=== PATIENT | male | born 1990 | race Caucasian/White ===

== ENCOUNTER 2018-11-18 13:42 | Emergency (ER) | payer MEDICARE, MEDICAID, SELFPAY ==
[2018-11-18] VITALS (44 sets, daily range): BP systolic 134–169; BP diastolic 58–108; PULSE 72–134; RESP 4–29; TEMP 36.2–36.9; O2SAT 91–100
--- NOTE | 2018-11-18 14:46 | ED.GENADUL_ITS ---
Discharge Plan Disposition Patient Disposition: HOME Condition: Good Discharge Details Chief Complaint: Nausea/Vomit/Diar Clinical Impression: Elevated liver enzymes, Fever, Vomiting, Dehydration, Acute hypokalemia Primary Care Provider: Gabe Waddell ED Provider: Geronimo Michelle Home Meds and New Rx's Prescriptions: New ondansetron 4 mg tablet,disintegrating 4 mg PO TID PRN (Reason: nausea and vomiting) 3 Days Qty: 9 RF: 0 No Action albuterol sulfate [ProAir HFA] 90 mcg/actuation HFA aerosol inhaler 2 puff IH Q4H PRNRF: 0 Space Chamber Plus 1 EACH spacer 1 ea Miscellaneous PRN Qty: 1 RF: 0 duloxetine 60 mg capsule,delayed release(DR/EC) 60 mg PO DAILY Qty: 90 RF: 4 Discharge Instructions Instructions: Dehydration (ED), Fever in Adults (ED), Liver Profile (GEN) Additional Instructions: We did not find a known source for your fever and vomiting. This may be from a viral gastroenteritis, however it is important that you follow-up with your primary care provider for reevaluation next week. We have sent off additional tests that will require 3 to 4 days to return and it is important follow-up with your primary care provider for these results as well. Among these are a Lyme test as well as studies to evaluate your elevated liver enzymes. Discharge Data Discharge Date/Time-TO BE ENTERED AT DEPARTURE: 11/18/18 18:40 Discharge Physician: Geronimo Michelle Medical Decision Making Patient presenting with febrile illness, symptoms of nausea, vomiting, few episodes of loose stools. Vitals significant for tachycardia which did resolve with IV fluids. Labs reveal hypokalemia, mildly elevated LFTs. Chest x-ray unremarkable. Suspect viral syndrome, I have sent blood cultures as well as hepatitis serology and Lyme and tick bite serologies. After 2 L of IV fluids patient feeling much better and requesting discharge to home. I reiterated the importance of follow-up with PCP for ongoing evaluation and need to return to ED for any worsening symptoms. Patient Name: CY DAVID #: [id number]: ER Ordering Provider: : REG ER Primary Care Provider: Gabe Waddell Date of Exam: 11/18/18Sex: M : 1990Age: 28 Exam(s) EXAM: XR Chest, 2 Views EXAM DATE/TIME: 11/18/2018 3:28 PM CLINICAL HISTORY: 28 years old, male; Signs and symptoms; Cough and fever TECHNIQUE: Imaging protocol: XR of the chest, 2 views. COMPARISON: CR LEFT CLAVICLE 04/06/2012 11:18 AM FINDINGS: Prior plate and screw fixation of a left clavicular fracture. The lung alamo are clear bilaterally. No focal pulmonary consolidation is present. The cardiac silhouette is within normal limits. The costophrenic angles are sharp. The bony structures otherwise appear unremarkable. IMPRESSION: No evidence of acute cardiopulmonary disease. Dictated and Authenticated by: Joel Ocampo MD. Ordering:KRISTEN Melton MD LANETTE Yanez presents with 3-day history of nausea, vomiting, few episodes of loose stools, fever, body aches. History significant for asthma, has had some cough and small amount of wheezing today. No productive sputum. General Date/Time Provider Initiated Documentation: 11/18/18 14:01 . Related Data Home Medications Medication Instructions Recorded Confirmed inhalational spacing device [Space #1 03/18/14 11/18/18 Chamber Plus] albuterol sulfate HFA 90 2 puff IH Q4H PRN gm 02/18/18 11/18/18 mcg/actuation aerosol inhaler duloxetine 60 mg capsule,delayed 60 mg PO DAILY #90 cap 10/24/18 11/18/18 release ondansetron 4 mg PO TID PRN 3 Days #9 tab 11/18/18 Previous Rx's Medication Instructions Recorded duloxetine 60 mg capsule,delayed 60 mg PO DAILY #90 cap 10/24/18 release ondansetron 4 mg PO TID PRN 3 Days #9 tab 11/18/18 Allergies Allergy/AdvReac Type Severity Reaction Status Date / Time No Known Allergies Allergy Unverified 11/18/18 14:07 General Stated Complaint: Nausea/Vomit/Diar CAMERON: 3 Review of Systems Constitutional Reports chills, Reports fatigue and Reports fever(s) Eyes Denies loss of vision ENT Denies nasal congestion and Denies sore throat Cardiovascular Denies chest pain and Denies dyspnea Respiratory Reports cough, Denies dyspnea and Reports wheezing Gastrointestinal Denies abdominal pain, Denies nausea and Denies vomiting Musculoskeletal Denies back pain, Denies muscle weakness and Denies numbness Integumentary/Breasts Denies rash Neurologic Denies focal weakness, Denies loss of vision and Denies numbness Endocrine Reports fatigue Hematologic/Lymphatic Denies easy bruising Allergic/Immunologic Reports wheezing PFSH Surgical History CLAVICULE FX (11/05/11) Family History Mother No problems noted. Father No problems noted. Sister No problems noted. Brother No problems noted. Social History Smoking/Tobacco Use Status: Current every day Alcohol Intake: current Alcohol Intake frequency: a few times a month Drug use: Daily Substance use type: marijuana Do you feel safe at home: Yes Do you feel safe in your relationship?: Yes Exam Const General: cooperative, no acute distress and well developed Orientation: alert, awake and oriented x3 HENMT Head: normal to inspection Ears: hearing grossly normal bilaterally Eyes EOM: EOM intact bilaterally Neck Neck: normal visual inspection Resp Effort & Inspection: normal respiratory effort Auscultation: rhonchi and wheezes Cardio Rate: regular rate Rhythm: regular rhythm Heart Sounds: no murmurs GI Palpation: soft and nontender Skin General skin exam: no rashes or lesions noted Neuro General: alert, awake and oriented x3 Speech: speech normal Gait: normal gait Extrem General: normal to inspection Course Vital Signs Temperature 36.2 C L 11/18/18 13:45 Pulse 134 H 11/18/18 13:45 Respiratory Rate 16 11/18/18 13:45 Blood Pressure 164/103 H 11/18/18 13:45 Pulse Oximetry 94 L 11/18/18 13:45 Temperature 36.2 C L 11/18/18 13:45 Temperature Source Temporal Artery Scan 11/18/18 13:45 Pulse 113 H 11/18/18 14:09 Respiratory Rate 11 L 11/18/18 14:09 Respiratory Effort Non-Labored 11/18/18 14:00 Blood Pressure 152/93 H 11/18/18 14:09 Blood Pressure Position Sitting 11/18/18 13:45 Pulse Oximetry 94 L 11/18/18 14:09 Oxygen Delivery Method Room Air 11/18/18 14:09 Oxygen Flow Rate 0 11/18/18 14:09 Pain Level 6 11/18/18 13:45
--- NOTE | 2018-11-18 14:52 | DI.RAD_ITS ---
SYMPTOM/DIAGNOSIS: COUGH, FEVER, LETHARGY PA AND LATERAL CHEST: Comparison is made with 08/18/10. Heart size and pulmonary vasculature are within normal limits. The lungs are clear. No effusions are seen. No pneumothorax is present. There is a side plate and screws transfixing an old healed left clavicular fracture. No acute osseous abnormality is identified. IMPRESSION: No acute pulmonary process.
[2018-11-18] MEDS: Ondansetron 4 MG/2 ML VIAL IVP (15:10)
[2018-11-18 15:11] LABS: Abs Immature Grans 0.01 k/cumm (0.0-0.09); Absolute Basophil Count 0.02 k/cumm (0.0-0.2); Absolute Eosinophil Count 0.17 k/cumm (0.0-0.7); Absolute Lymphocyte Count 1.88 k/cumm (1.2-3.4); Absolute Monocyte Count 1.08 k/cumm (0.11-0.7); Absolute Neutrophil Count 6.33 k/cumm (1.2-6.7); Basophils % 0.2; Eosinophils % 1.8; HCT 44.6 % (40.0-50.0); HGB 15.4 g/dL (13.5-17.5); Immature Grans % 0.1; Lymphocytes % 19.8; Mean Corp. HGB Concentration 34.5 g/dL (32.0-36.0); Mean Corpuscular Hemoglobin 30.6 pg (27.0-33.0); Mean Corpuscular Volume 88.5 fL (80-95); Mean Platelet Volume 10.4 fL (8.0-11.0); Monocytes % 11.4; Neutrophils % 66.7; Platelet Count 278 x1000/uL (130-400); RBC 5.04 m/cumm (4.50-6.00); White Blood Cell Count 9.49 k/cumm (4.4-10.8)
[2018-11-18] MEDS: Normal Saline 1,000 ML 1000 ML IV ×2 (15:11→17:01)
[2018-11-18 15:12] LABS: BE (Venous) -0.4 mmol/L (-3-3); HCO3 (Venous) 24 mmol/L (22-28); O2 Sat (Venous) 92 % (70-80); TCO2 (Venous) 21 mmol/L (22-29); pCO2 (Venous) 39 mm/Hg (34-47); pO2 (Venous) 60 mm/Hg (28-44)
[2018-11-18 15:19] LABS: Bilirubin Moderate (Negative); Blood Trace-intact (Negative); Clarity Clear; Glucose Negative (Negative); Ketones 80 mg/dL (Negative); Leukocyte Esterase Negative (Negative); Nitrite Negative (Negative); Specific Gravity 1.025 (1.005-1.025)
[2018-11-18] MEDS: Albuterol/Ipratropium 3 ML UPD VIAL UPD (15:31)
[2018-11-18 15:33] LABS: Bacteria Few HPF (Negative); C & S Indicated? No; Casts Negative LPF (Negative); Crystals Negative HPF (Negative); Epithelial Cells Negative HPF (Negative); Mucus Heavy (Negative); Other Cells Negative (Negative); RBC 0-2 (0-2)
[2018-11-18 15:33] LABS: ALT 104 U/L (12-78); AST 53 U/L (15-37); Albumin 3.9 g/dL (3.4-5.0); Alkaline Phosphatase 58 U/L (46-116); Anion Gap 11.4 mmol/L (3-11); BUN 17 mg/dL (7-18); Bilirubin, Total 0.6 mg/dL (0.2-1.0); CO2 24.6 mmol/L (21.0-32.0); CREATININE 0.91 mg/dL (0.70-1.30); Calcium 9.3 mg/dL (8.5-10.1); Chloride 98 mmol/L (98-107); Glucose 117 mg/dL (70-100); Potassium 3.1 mmol/L (3.5-5.1); Sodium 134 mmol/L (136-145); Total Protein 8.7 g/dL (6.4-8.2)
[2018-11-18 15:50] LABS: Procalcitonin < 0.1 ng/mL
--- NOTE | 2018-11-18 15:54 | DI.VRAD_ITS ---
EXAM: XR Chest, 2 Views EXAM DATE/TIME: 11/18/2018 3:28 PM CLINICAL HISTORY: 28 years old, male; Signs and symptoms; Cough and fever TECHNIQUE: Imaging protocol: XR of the chest, 2 views. COMPARISON: CR LEFT CLAVICLE 04/06/2012 11:18 AM FINDINGS: Prior plate and screw fixation of a left clavicular fracture. The lung alamo are clear bilaterally. No focal pulmonary consolidation is present. The cardiac silhouette is within normal limits. The costophrenic angles are sharp. The bony structures otherwise appear unremarkable. IMPRESSION: No evidence of acute cardiopulmonary disease. Dictated and Authenticated by: Joel Ocampo MD. Ordering:KRISTEN Melton MD
[2018-11-18] MEDS: Potassium Chloride 20 MEQ TABCR 40 MEQ PO (17:30)
[2018-11-18] MEDS: Ondansetron 4 MG TAB PO (18:26)
[2018-11-20 11:11] LABS: Lyme Ab w Rflx to Lyme Confirm Negative
[2018-11-20 12:03] LABS: Hepatitis A Antibody IgM Negative (NEGAT); Hepatitis B Core Antibody Negative (NEGAT); Hepatitis B surface Ag Negative (NEGAT); Hepatitis C Ab w Rflx HCV PCR Negative (NEGAT)
[2018-11-21 00:03] LABS: Anaplasma phagocytophilum Negative (Negative); B. miyamotoi PCR Negative (Negative); Babesia divergens/MO-1 Negative (Negative); Babesia duncani Negative (Negative); Babesia microti Negative (Negative); Ehrlichia chaffeensis Negative (Negative); Ehrlichia ewingii/canis Negative (Negative); Ehrlichia muris eauclairensis Negative (Negative)
== END 2018-11-18 18:40 | disposition home or self-care (01) ==
PROVIDERS: Emergency Provider Physician Assistant Medical; PCP Family Medicine
DX: R94.5 Abnormal results of liver function studies (principal); R50.9 Fever, unspecified; R11.10 Vomiting, unspecified; E86.0 Dehydration; E87.6 Hypokalemia; R00.0 Tachycardia, unspecified
CPT/HCPCS: 36415; 80053; 82805; 84145; 86704; 86709; 86803; 87040; 87340; 87449; 94640; 96361; 96374; 99284; 71046; 81003; 81015; 85025; 86618; 87798; J2405; J7620; J8597

== ENCOUNTER 2020-03-14 10:57 | Outpatient (CLI) | payer MEDICARE, MEDICAID, SELFPAY ==
[2020-03-14 13:24] LABS: ALT 317 U/L (16-63); AST 250 U/L (15-37); Albumin 3.7 g/dL (3.4-5.0); Alkaline Phosphatase 66 U/L (46-116); Bilirubin, Direct 0.16 mg/dL (0.00-0.20); Bilirubin, Total 0.4 mg/dL (0.2-1.0); Total Protein 7.3 g/dL (6.4-8.2)
[2020-03-14 13:26] LABS: Hemoglobin A1C 5.6 % (<5.7)
[2020-03-14 13:38] LABS: Calculated LDL 261 mg/dL (<100); Cholesterol 337 mg/dL (<200); HDL Cholesterol 30 mg/dL (40-60); Triglyceride 234 mg/dL (<150)
== END 2020-03-14 11:17 ==
PROVIDERS: PCP Family Medicine; Visit Provider Family Medicine
DX: E78.5 Hyperlipidemia, unspecified (principal); R73.9 Hyperglycemia, unspecified; G72.89 Other specified myopathies
CPT/HCPCS: 36415; 80061; 80076; 83036

== ENCOUNTER 2020-06-18 04:31 | Outpatient (CLI) | payer MEDICARE, MEDICAID, SELFPAY ==
[2020-06-18 16:23] LABS: Calculated LDL 278 mg/dL (<100); Cholesterol 360 mg/dL (<200); HDL Cholesterol 35 mg/dL (40-60); Triglyceride 238 mg/dL (<150)
[2020-06-18 16:58] LABS: ALT 65 U/L (16-63); AST 34 U/L (15-37); Albumin 4.2 g/dL (3.4-5.0); Alkaline Phosphatase 46 U/L (46-116); Bilirubin, Direct 0.09 mg/dL (0.00-0.20); Bilirubin, Total 0.5 mg/dL (0.2-1.0); Total Protein 7.7 g/dL (6.4-8.2)
== END 2020-06-18 04:51 ==
PROVIDERS: PCP Family Medicine; Visit Provider Internal Medicine
DX: E78.2 Mixed hyperlipidemia (principal); R94.5 Abnormal results of liver function studies
CPT/HCPCS: 36415; 80061; 80076

== ENCOUNTER 2021-01-01 08:35 | Outpatient (CLI) | payer MEDICARE, MEDICAID, SELFPAY ==
[2021-01-01 17:24] LABS: BUN 14 mg/dL (7-18); CREATININE 0.8 mg/dL (0.70-1.30); Calcium 9.7 mg/dL (8.5-10.1); Chloride 100 mmol/L (98-107); Glucose 88 mg/dL (74-106); Potassium 4.7 mmol/L (3.5-5.1); Sodium 138 mmol/L (136-145)
[2021-01-01 17:30] LABS: ALT 35 U/L (16-63); AST 28 U/L (15-37); Albumin 4.4 g/dL (3.4-5.0); Alkaline Phosphatase 56 U/L (46-116); Bilirubin, Total 0.4 mg/dL (0.2-1.0); Calculated LDL 160 mg/dL (<100); Cholesterol 267 mg/dL (<200); HDL Cholesterol 46 mg/dL (40-60); Total Protein 7.7 g/dL (6.4-8.2); Triglyceride 309 mg/dL (<150)
[2021-01-01 17:43] LABS: Bilirubin, Direct 0.1 mg/dL (0.0-0.2)
== END 2021-01-01 08:36 | disposition home or self-care (01) ==
LOC: LBO 08:39
PROVIDERS: PCP Family Medicine; Visit Provider Internal Medicine
DX: E78.01 Familial hypercholesterolemia (principal); R94.5 Abnormal results of liver function studies; I10 Essential (primary) hypertension
CPT/HCPCS: 36415; 80048; 80061; 80076

== ENCOUNTER 2021-07-02 01:59 | Outpatient (CLI) | payer MEDICARE, MEDICAID, SELFPAY ==
[2021-07-02 14:56] LABS: Calculated LDL 83 mg/dL (<100); Cholesterol 178 mg/dL (<200); HDL Cholesterol 48 mg/dL (40-60); Triglyceride 239 mg/dL (<150)
== END 2021-07-02 02:00 | disposition home or self-care (01) ==
LOC: LBO 01:59
PROVIDERS: PCP Family Medicine; Visit Provider Internal Medicine
DX: E78.01 Familial hypercholesterolemia (principal)
CPT/HCPCS: 36415; 80061

== ENCOUNTER 2023-05-17 02:17 | Outpatient (CLI) | payer MEDICARE, SELFPAY ==
[2023-05-17 13:19] LABS: ALT 47 U/L (16-63); AST 33 U/L (15-37); Alkaline Phosphatase 46 U/L (46-116); Anion Gap 6.7 mmol/L (3-11); BUN 10 mg/dL (7-18); Bilirubin, Total 0.3 mg/dL (0.2-1.0); CO2 28.3 mmol/L (21.0-32.0); CREATININE 0.9 mg/dL (0.70-1.30); Calcium 8.9 mg/dL (8.5-10.1); Calculated LDL 77 mg/dL (<100); Chloride 104 mmol/L (98-107); Cholesterol 158 mg/dL (<200); Glucose 101 mg/dL (74-106); HDL Cholesterol 43 mg/dL (40-60); Sodium 139 mmol/L (136-145); Total Protein 7.2 g/dL (6.4-8.2); Triglyceride 194 mg/dL (<150)
== END 2023-05-17 02:18 | disposition home or self-care (01) ==
PROVIDERS: PCP Family Medicine
DX: R79.89 Other specified abnormal findings of blood chemistry (principal); I10 Essential (primary) hypertension
CPT/HCPCS: 36415; 80053; 80061

== ENCOUNTER 2024-09-12 14:21 | Emergency (ER) | payer MEDICAID, SELFPAY ==
[2024-09-12 14:23] VITALS: BP 140/92; PULSE 108; RESP 15; TEMP 36.5; O2SAT 99
[2024-09-12 14:28] VITALS: BP 140/92; PULSE 108; RESP 15; TEMP 36.5; O2SAT 99
--- NOTE | 2024-09-12 14:36 | ED.GENADUL_ITS ---
Discharge Plan Disposition Patient Disposition: Eloped Condition: Stable Discharge Details Chief Complaint: RespSymp Clinical Impression: N&V (nausea and vomiting) Primary Care Provider: Gabe Waddell ED Provider: Bryan Lowe Home Meds and New Rx's Prescriptions: No Action albuterol sulfate [ProAir HFA] 90 mcg/actuation HFA aerosol inhaler 2 puff IH Q4H PRN (Reason: bronchospasm) Qty: 8.5 2RF ezetimibe 10 mg tablet 10 mg PO DAILY Qty: 90 3RF hydrochlorothiazide 12.5 mg tablet 12.5 mg PO DAILY Qty: 90 3RF losartan 100 mg tablet 100 mg PO DAILY Qty: 90 3RF (DME) Space Chamber Plus 1 EACH spacer 1 ea Miscellaneous PRN Qty: 1 rosuvastatin 20 mg tablet 20 mg PO DAILY Qty: 90 3RF metoprolol succinate 50 mg tablet extended release 24 hr 50 mg PO DAILY Qty: 90 3RF venlafaxine 150 mg capsule,extended release 24hr 150 mg PO QAM Qty: 90 3RF venlafaxine 75 mg capsule,extended release 24hr 75 mg PO DAILY Qty: 90 3RF HPI General Mode of arrival: ambulatory . Date/Time Provider Initiated Documentation: 09/12/24 14:24 . Limitations to Documentation: no limitations . Information obtained by: patient . History of Present Illness 33 year old M presents to the emergency department with the chief complaint of n/v/d, described as moderate, Patient started experiencing this week(s) (1) and it has been constant. No relieving factors improve symptom(s), No exacerbating factors reported . Patient notes denies chest pain, fever/chills and shortness of breath. Patient did receive the following treatments prior to arrival, none Related Data Home Medications ?Medication ?Instructions ?Recorded ?Confirmed inhalational spacing device (Space ##1 03/18/14 09/12/24 Chamber Plus) albuterol sulfate 90 mcg/actuation 2 puff inhalation Q4H PRN 11/01/23 09/12/24 aerosol inhaler (ProAir HFA) bronchospasm #8.5 grams ezetimibe 10 mg tablet 10 mg PO DAILY #90 tabs 11/01/23 09/12/24 hydrochlorothiazide 12.5 mg tablet 12.5 mg PO DAILY #90 tabs 11/01/23 09/12/24 losartan 100 mg tablet 100 mg PO DAILY #90 tabs 11/01/23 09/12/24 rosuvastatin 20 mg tablet 20 mg PO DAILY #90 tabs 01/21/24 09/12/24 metoprolol succinate 50 mg 50 mg PO DAILY #90 tabs 08/03/24 09/12/24 tablet,extended release 24 hr venlafaxine 150 mg 150 mg PO QAM #90 caps 08/08/24 09/12/24 capsule,extended release 24 hr venlafaxine 75 mg capsule,extended 75 mg PO DAILY #90 caps 08/08/24 09/12/24 release 24 hr Previous Rx's ?Medication ?Instructions ?Recorded albuterol sulfate 90 mcg/actuation 2 puff inhalation Q4H PRN 11/01/23 aerosol inhaler (ProAir HFA) bronchospasm #8.5 grams ezetimibe 10 mg tablet 10 mg PO DAILY #90 tabs 11/01/23 hydrochlorothiazide 12.5 mg tablet 12.5 mg PO DAILY #90 tabs 11/01/23 losartan 100 mg tablet 100 mg PO DAILY #90 tabs 11/01/23 rosuvastatin 20 mg tablet 20 mg PO DAILY #90 tabs 01/21/24 metoprolol succinate 50 mg 50 mg PO DAILY #90 tabs 08/03/24 tablet,extended release 24 hr venlafaxine 150 mg 150 mg PO QAM #90 caps 08/08/24 capsule,extended release 24 hr venlafaxine 75 mg capsule,extended 75 mg PO DAILY #90 caps 08/08/24 release 24 hr Allergies Allergy/AdvReac Type Severity Reaction Status Date / Time No Known Allergies Allergy Verified 09/12/24 14:29 General Stated Complaint: RespSymp CAMERON: 3 Review of Systems All systems reviewed & are unremarkable except as noted in HPI and below Constitutional Constitutional: Denies chills, Denies fever(s) and Denies weakness Cardiovascular Cardiovascular: Denies chest pain and Denies dyspnea Respiratory Respiratory: Denies cough and Denies dyspnea Gastrointestinal Gastrointestinal: Denies abdominal pain, Reports diarrhea, Reports nausea and Reports vomiting Neurologic Neurologic: Denies weakness Psychiatric Psychiatric: Denies depression Exam Const General: no acute distress Orientation: alert HENMT Head: normal to inspection Ears: external ears normal General nose exam: external nose normal Mouth: moist mucous membranes Eyes General: appearance normal, both eyes and all related structures Neck Neck: normal visual inspection Resp Effort & Inspection: normal respiratory effort and able to speak in complete sentences Cardio Rate: regular rate GI Palpation: soft, not firm, no guarding and nontender Skin General skin exam: no rashes or lesions noted Neuro General: patient alert and patient oriented x3 Extrem General: normal to inspection Psych Mental Status: mental status grossly normal Course Vital Signs Vital signs: Vital Signs Temperature 36.5 C 09/12/24 14:23 Pulse 108 H 09/12/24 14:23 Respiratory Rate 15 09/12/24 14:23 Blood Pressure 140/92 H 09/12/24 14:23 Pulse Oximetry 99 09/12/24 14:23 Temperature 36.5 C 09/12/24 14:28 Temperature Source Oral 09/12/24 14:28 Pulse 108 H 09/12/24 14:28 Respiratory Rate 15 09/12/24 14:28 Respiratory Effort Normal 09/12/24 14:29 Respiratory Depth Normal 09/12/24 14:29 Blood Pressure 140/92 H 09/12/24 14:28 Blood Pressure Position Sitting 09/12/24 14:28 Pulse Oximetry 99 09/12/24 14:28 Oxygen Delivery Method Room Air 09/12/24 14:28 Oxygen Flow Rate 0 09/12/24 14:28 Pain Level 6 09/12/24 14:28 Medical Decision Making 33-year-old male with a history of hypertension, hyperlipidemia, who comes in with 1 week of nausea vomiting and loose stools. Denies any fevers or recent travel, no chest pain or severe abdominal pain. He says intermittently will have abdominal cramping. He states that he does use marijuana daily but has not in a week, denies any other drug or daily alcohol use. He is stable on arrival, his abdomen is soft and nontender. I suspect gastroenteritis versus food illness. Will check a CBC, CMP, lipase and also treat his symptoms with Compazine and IV fluids. Given the lack of abdominal tenderness I doubt surgical pathology such as small bowel obstruction. Patient started have increased anxiety which I felt was due to the Compazine so Benadryl was ordered. After reviewing labs which did not show any significant acute findings other than a mild EMILY which is likely from dehydration nursing advised me that he took his IV out and left standing with having a panic attack and did not want to stay here anymore. I was not able to speak with him prior to him eloping from the emergency department Differential Diagnosis Differential Diagnosis: Gastroenteritis, dehydration Quality:SDOH Health Related Social Needs: No Data to Display PFSH All Active Problems (Updated 09/12/24 @ 15:48 by Bryan Lowe MD) N&V (nausea and vomiting) (Acute) Sensorineural hearing loss, bilateral (Acute) Cholesteatoma of left ear (Acute) Central perforation of tympanic membrane of both ears (Acute) Retraction pocket of tympanic membrane of left ear (Acute) Myringitis of left ear (Acute) Acute swimmer's ear of both sides (Acute) Conductive hearing loss, bilateral (Acute) Central perforation of tympanic membrane, right ear (Acute) Acute suppurative otitis media (Acute) Nocturia (Acute) Alcohol abuse (Chronic) Tobacco abuse (Acute) Familial hyperlipidemia (Acute) Chest pain (Acute) Elevated blood pressure reading without diagnosis of hypertension (Acute) Hyperlipidemia with target LDL less than 130 (Acute) Medication overuse headache (Acute 07/15/16) GERD (gastroesophageal reflux disease) (Acute 12/22/11) Depression (Acute 12/22/11) Chronic migraine without aura without status migrainosus, not intractable (Acute 07/15/16) Surgical History CLAVICULE FX (11/05/11) LEFT Family History Mother No problems noted. Father No problems noted. Sister No problems noted. Brother No problems noted. Social History Smoking/Tobacco Use Status: Current every day Tobacco Type: cigarettes Tobacco: How many years used: 17 Quit status: considering quitting Second Hand Exposure: Yes Smoking risk assessment performed?: Yes Alcohol Intake: current Alcohol Intake frequency: a few times a week Alcohol type: beer Drug use: Daily Substance use type: marijuana Household members: spouse and children Housing: house Communication Needs: None Do you need help understanding health information?: Rarely current occupation: disabled Pets and animals: Yes Pets and animals: cat(s), dog(s) and other Details: Lizzard Sexually active: Yes Do you think of yourself as: straight/heterosexual Current gender identity: male What is your relationship status?: How often do you talk on the phone with friends or family?: decline to answer How often do you get together with friends or relatives?: once per week How often do you attend restoration or scientology services?: decline to answer Do you belong to any clubs or organized social groups?: no Panel score (0-1 are the most socially isolated patients): 1 What type of physical activity do you participate in: weight lifting and other Details: Boxing Duration: 15-30 minutes/day Frequency: daily Jade/Nondenominational: No preference Special jade needs: No Seatbelt use: always Helmet use: Yes Helmet use: always Drive intox or ride w/intox courtesy driver: No Do you feel safe at home: Yes Do you feel safe in your relationship?: Yes PAWSS Have you Been Recently Intoxicated or Drunk Within the Last 30 days?: No Have you Ever Experienced Previous Episodes of Alcohol Withdrawal?: No Have you ever Experienced Withdrawal Seizures?: No Have you ever Experienced Delirium Tremens(DT)s?: No Have you ever undergone Alcohol Rehabilitation Treatment (i.e, inpt ot outpatient treatment programs)?: No Have you ever Experienced Blackouts?: No Have you ever Combined Alcohol with other Downers within the last 90 days?: No Have you ever Combined Alcohol with any other Substance of Abuse during the last 90 days?: No Result: 0
[2024-09-12] MEDS: Prochlorperazine 10 MG/2 ML VIAL IVP (14:58)
[2024-09-12] MEDS: Normal Saline 1,000 ML 1000 ML IV (14:59)
[2024-09-12 15:04] LABS: BE (Venous) -1 mmol/L (-2-3); HCO3 (Venous) 24 mmol/L (23-28); O2 Sat (Venous) 26 %; TCO2 (Venous) 22 mmol/L (24-29); pCO2 (Venous) 43 mmHg (41-51); pH (Venous) 7.36 (7.31-7.41); pO2 (Venous) 18 mmHg
[2024-09-12 15:05] LABS: Abs Immature Grans 0.01 10^3/uL (0.0-0.06); Absolute Basophil Count 0.02 10^3/uL (0.0-0.2); Absolute Eosinophil Count 0.02 10^3/uL (0.0-0.7); Absolute Lymphocyte Count 1.37 10^3/uL (1.2-3.4); Absolute Monocyte Count 0.62 10^3/uL (0.1-0.8); Absolute Neutrophil Count 3.05 10^3/uL (1.2-6.7); Basophils % 0.4 %; Eosinophils % 0.4 %; HCT 45.4 % (40.0-50.0); HGB 16.1 g/dL (13.5-17.5); Immature Grans % 0.2 %; Lymphocytes % 26.9 %; MCHC 35.5 % (32.0-36.0); MCV 87 fL (80-95); MPV 9.6 fL (8.0-11.0); Monocytes % 12.2 %; Neutrophils % 59.9 %; Platelet Count 217 10^3/uL (130-400); RDW-SD 38.7 fL; WBC 5.09 10^3/uL (4.4-10.8)
[2024-09-12] MEDS: diphenhydrAMINE 50 MG/ML VIAL 25 MG IVP (15:21)
[2024-09-12 15:22] LABS: ALT 58 U/L (16-63); AST 60 U/L (15-37); Albumin 4.2 g/dL (3.4-5.0); Alkaline Phosphatase 68 U/L (46-116); Anion Gap 15.5 mmol/L (3-11); BUN 35 mg/dL (7-18); Bilirubin, Direct 0.2 mg/dL (0.0-0.2); Bilirubin, Total 0.4 mg/dL (0.2-1.0); CO2 24.5 mmol/L (21.0-32.0); CREATININE 1.4 mg/dL (0.70-1.30); Calcium 9.2 mg/dL (8.5-10.1); Chloride 99 mmol/L (98-107); Estimated GFR 68.49 (mL/min/1.73m2); Glucose 130 mg/dL (74-106); Lipase 36 U/L (<78); Magnesium 2.5 mg/dL; Potassium 3.8 mmol/L (3.5-5.1); Sodium 139 mmol/L (136-145); Total Protein 8.6 g/dL (6.4-8.2)
[2024-09-12 15:27] LABS: Bilirubin Small (Negative); Blood Moderate (Negative); Clarity Clear (Clear); Glucose Negative (Negative); Ketones Trace mg/dL (Negative); Leukocyte Esterase Negative (Negative); Nitrite Negative (Negative); Specific Gravity 1.025 (1.005-1.025); Urobilinogen 0.2 mg/dL (Up to 0.2)
[2024-09-12 15:33] LABS: TSH (W/Ref FT4) 0.82 uIU/mL (0.36-3.74)
[2024-09-12 16:06] LABS: Bacteria Negative HPF (Negative); Casts Negative LPF (Negative); Crystals Negative HPF (Negative); Epithelial Cells Negative HPF (Negative); Mucus Moderate (Negative)
[2024-09-12 16:07] LABS: C & S Indicated? Yes; RBC 0-2 HPF (0-2)
[2024-09-12 16:20] LABS: COVID-19 PCR Negative (Negative); Influenza A PCR Negative (Negative); Influenza B PCR Positive (Negative); RSV PCR Negative (Negative)
[2024-09-12 16:22] LABS: Source Nasopharynx
== END 2024-09-12 15:48 | disposition left against medical advice (07) ==
PROVIDERS: Emergency Provider Emergency Medicine; PCP Family Medicine
DX: R11.2 Nausea with vomiting, unspecified (principal); R10.9 Unspecified abdominal pain; I10 Essential (primary) hypertension; E78.5 Hyperlipidemia, unspecified; F41.9 Anxiety disorder, unspecified
CPT/HCPCS: 80053; 82805; 83690; 87637; 96361; 96374; 96375; 99284; 81003; 81015; 82248; 83735; 84443; 85025; 87086; 99283; J0780; J1200

== ENCOUNTER 2024-12-25 08:21 | Emergency (ER) | payer MEDICAID, SELFPAY ==
[2024-12-25] VITALS (24 sets, daily range): BP systolic 152–175; BP diastolic 101–120; PULSE 111–134; RESP 15–40; TEMP 36.4–36.9; O2SAT 90–99
--- NOTE | 2024-12-25 08:30 | RT.EKG_ITS ---
APPROVED REPORT Exam: Resting ECG Reason for Exam: n/v, baseline assessment Patient Location: E HR:122 bpm ECG Measurements Heart Rate 122 AXIS DE 132 P 67 QRSd 117 QRS 77 QT 333 T 18 QTc 475 Conclusion Sinus tachycardia, ate 122 RBBB, unchanged from priors No STEMI
--- NOTE | 2024-12-25 08:53 | W.ED.GENAD ---
Discharge Plan Disposition Patient Disposition: Home Discharge Details Clinical Impression: Hypokalemia, Nausea & vomiting, Asthma, Hypertension Primary Care Provider: Gabe Waddell ED Provider: Hallie Adhikari Home Meds and New Rx's Prescriptions: No Action hydrochlorothiazide 12.5 mg tablet 12.5 mg PO DAILY Qty: 90 3RF albuterol sulfate 90 mcg/actuation HFA aerosol inhaler 2 puff IH Q4H PRN (Reason: bronchospasm) Qty: 8.5 2RF (DME) Space Chamber Plus 1 EACH spacer 1 ea Miscellaneous PRN Qty: 1 rosuvastatin 20 mg tablet 20 mg PO DAILY Qty: 90 3RF metoprolol succinate 50 mg tablet extended release 24 hr 50 mg PO DAILY Qty: 90 3RF venlafaxine 150 mg capsule,extended release 24hr 150 mg PO QAM Qty: 90 3RF venlafaxine 75 mg capsule,extended release 24hr 75 mg PO DAILY Qty: 90 3RF losartan 100 mg tablet 100 mg PO DAILY Qty: 90 3RF ezetimibe 10 mg tablet 10 mg PO DAILY Qty: 90 3RF Discharge Instructions Instructions: High Potassium Diet Additional Instructions: Please call your primary care provider first thing in the morning to schedule follow-up appointment to discuss today's emergency department visit and asthma management. Your blood pressure was also very elevated today. I recommend discussing blood pressure management with your primary care provider and rechecking her blood pressure at home when you are in a more relaxed setting. Your workup today was very reassuring. Stay well-hydrated, drinking plenty of fluids throughout the day. Please use electrolyte rich beverages such as liquid IV to help rehydrate. I encourage you to continue using your inhaler 2 puffs every 4-6 hours. Please use with a spacer to help improve efficacy. Return to emergency care if you develop new chest pains, difficulty breathing, uncontrollable vomiting, abdominal pain, episodes of passing out, or if you are very worried you need to be rechecked again immediately. Referrals: Gabe Waddell MD [Primary Care Provider, Medicine] HPI General Date/Time Provider Initiated Documentation: 12/25/24 08:29. HPI Narrative: Beau is a 34-year-old male who presents to the emergency department for evaluation of nausea, vomiting, and diarrhea since 12/22/2024. Symptoms began with cold symptoms (including body aches, chills/cold sweats, body aches, low energy, and cough). By 12/23/2024, he experienced nausea, vomiting, and diarrhea, with fatigue and frequent watery diarrhea. Denies associated fever, dizziness, congestion, sore throat, chest pain, difficulty breathing, abdominal pain, change in urine output, black/tarry looking stools. Vomits 1-2 times daily, only able to drink sips of water and liquid IV. Today unable to hold down anything. Has used his albuterol inhaler x 3 today, says initially use due to anxiety, but now does admit to some wheezing. Denies recent ill contacts. Has been seen in ED for similar symptoms caused by influenza, treated with Compazine in 09/2024, causing panic attack. Zofran has been effective for nausea in the past. History of asthma, anxiety, migraine, GERD, HLD. Denies recent alcohol use. Does admit to daily marijuana use. Related Data Home Medications ?Medication ?Instructions ?Recorded ?Confirmed inhalational spacing device (Space ##1 03/18/14 12/25/24 Chamber Plus) rosuvastatin 20 mg tablet 20 mg PO DAILY #90 tabs 01/21/24 12/25/24 metoprolol succinate 50 mg 50 mg PO DAILY #90 tabs 08/03/24 12/25/24 tablet,extended release 24 hr venlafaxine 150 mg 150 mg PO QAM #90 caps 08/08/24 12/25/24 capsule,extended release 24 hr venlafaxine 75 mg capsule,extended 75 mg PO DAILY #90 caps 08/08/24 12/25/24 release 24 hr albuterol sulfate 90 mcg/actuation 2 puff inhalation Q4H PRN 09/13/24 12/25/24 aerosol inhaler bronchospasm #8.5 grams hydrochlorothiazide 12.5 mg tablet 12.5 mg PO DAILY #90 tabs 09/13/24 12/25/24 ezetimibe 10 mg tablet 10 mg PO DAILY #90 tabs 11/21/24 12/25/24 losartan 100 mg tablet 100 mg PO DAILY #90 tabs 11/21/24 12/25/24 Previous Rx's ?Medication ?Instructions ?Recorded rosuvastatin 20 mg tablet 20 mg PO DAILY #90 tabs 01/21/24 metoprolol succinate 50 mg 50 mg PO DAILY #90 tabs 08/03/24 tablet,extended release 24 hr venlafaxine 150 mg 150 mg PO QAM #90 caps 08/08/24 capsule,extended release 24 hr venlafaxine 75 mg capsule,extended 75 mg PO DAILY #90 caps 08/08/24 release 24 hr albuterol sulfate 90 mcg/actuation 2 puff inhalation Q4H PRN 09/13/24 aerosol inhaler bronchospasm #8.5 grams hydrochlorothiazide 12.5 mg tablet 12.5 mg PO DAILY #90 tabs 09/13/24 ezetimibe 10 mg tablet 10 mg PO DAILY #90 tabs 11/21/24 losartan 100 mg tablet 100 mg PO DAILY #90 tabs 11/21/24 Allergies Allergy/AdvReac Type Severity Reaction Status Date / Time No Known Allergies Allergy Verified 12/25/24 08:36 General Stated Complaint: Nausea/Vomit/Diar CAMERON: 3 Exam Narrative Exam Narrative: General Appearance: Very anxious. Vital signs: Hypertension and tachycardia noted. O2 sat 91% on room air. No tachypnea. HEENT: Tacky mucous membranes. Respiratory: Mild wheezing in all lung [place]. Slightly increased work of breathing. Cardiovascular: Tachycardia, regular rhythm, normal heart sounds. Gastrointestinal: Soft, nondistended, nontender abdomen with normoactive bowel sounds. Lymphatic: No cervical or submandibular lymphadenopathy. Back, Musculoskeletal: Moving all extremities equally. Psychiatric: Very anxious. Course Vital Signs Vital signs: Vital Signs Temperature 36.9 C 12/25/24 08:32 Pulse 134 H 12/25/24 08:32 Respiratory Rate 16 12/25/24 08:32 Blood Pressure 175/107 H 12/25/24 08:32 Pulse Oximetry 91 L 12/25/24 08:32 Temperature 36.4 C L 12/25/24 08:43 Temperature Source Temporal Artery Scan 12/25/24 08:43 Pulse 134 H 12/25/24 08:43 Respiratory Rate 24 12/25/24 08:43 Blood Pressure 175/107 H 12/25/24 08:43 Blood Pressure Position Sitting 12/25/24 08:43 Pulse Oximetry 91 L 12/25/24 08:43 Oxygen Delivery Method Room Air 12/25/24 08:32 Oxygen Flow Rate 0 12/25/24 08:32 Pain Level 0 12/25/24 08:32 Medical Decision Making Initial Assessment: 34-year-old male with nausea, vomiting, diarrhea, history of anxiety, asthma, and daily marijuana use. Symptoms began after cold with body aches and cough. Differential Diagnosis includes but is not limited to: Pneumonia, gastroenteritis, gastritis, viral illness such as COVID-19 or flu, asthma exacerbation, cyclic vomiting syndrome, cannabinoid hyperemesis, dehydration, electrolyte imbalance, anxiety. No red flags in history or physical exam concerning for acute surgical abdomen requiring diagnostic imaging at this time. I independently interpreted the following tests: EKG reassuring, sinus tachycardia, rate 122. RBBB unchanged from previous. No changes consistent with acute ischemia. Normal intervals. CBC notable for mild leukocytosis, white cell count 11.11. CMP notable for mild hypokalemia, potassium 3.3. Lipase unremarkable. Flu and COVID [id number] negative. ED Course: - Administered IV fluids. - Administered Zofran and lorazepam IV. - Administered DuoNeb nebulizer treatment. - COVID-19 and influenza tests conducted. - Potassium supplementation administered After receiving medications Beau reports feeling significantly better, anxiety improved he felt like his work of breathing and nausea had resolved. O2 sat now in mid 90s on room air. Final Assessment: Administered IV fluids, Zofran, lorazepam, and DuoNeb nebulizer treatment. COVID-19 and influenza tests conducted. Symptoms likely due to viral illness. Tachycardia noted during stay, reports that Beau does have tachycardia at baseline, is usually above 100, including with PCP office visits and when she checks at home. Overall workup today reassuring, likely viral gastroenteritis. Recommend potassium supplementation and close follow-up with PCP for management of hypertension, anxiety, and asthma. Reviewed discharge instructions, including red flags indicate need for return to emergency care. Clinical Impression: - Nausea/vomiting - Hypokalemia - Asthma - Hypertension Patient consented to the use of BRANDIN PFSH All Active Problems (Updated 12/25/24 @ 12:11 by Hallie Garrett) Hypertension (Chronic) Asthma (Chronic) Nausea & vomiting (Acute) Hypokalemia (Acute) Sensorineural hearing loss, bilateral (Acute) Cholesteatoma of left ear (Acute) Central perforation of tympanic membrane of both ears (Acute) Retraction pocket of tympanic membrane of left ear (Acute) Myringitis of left ear (Acute) Acute swimmer's ear of both sides (Acute) Conductive hearing loss, bilateral (Acute) Central perforation of tympanic membrane, right ear (Acute) Acute suppurative otitis media (Acute) Nocturia (Acute) Alcohol abuse (Chronic) Tobacco abuse (Acute) Familial hyperlipidemia (Acute) Chest pain (Acute) Elevated blood pressure reading without diagnosis of hypertension (Acute) Hyperlipidemia with target LDL less than 130 (Acute) Medication overuse headache (Acute 07/15/16) GERD (gastroesophageal reflux disease) (Acute 12/22/11) Depression (Acute 12/22/11) Chronic migraine without aura without status migrainosus, not intractable (Acute 07/15/16) Surgical History CLAVICULE FX (11/05/11) LEFT Family History Mother No problems noted. Father No problems noted. Sister No problems noted. Brother No problems noted. Social History Smoking/Tobacco Use Status: Current every day Tobacco Type: cigarettes Tobacco: How many years used: 17 Quit status: considering quitting Second Hand Exposure: Yes Smoking risk assessment performed?: Yes Alcohol Intake: current Alcohol Intake frequency: a few times a week Alcohol type: beer Drug use: Daily Substance use type: marijuana Household members: spouse and children Housing: house Communication Needs: None Do you need help understanding health information?: Rarely current occupation: disabled Pets and animals: Yes Pets and animals: cat(s), dog(s) and other Details: Krystlekirstin Sexually active: Yes Do you think of yourself as: straight/heterosexual Current gender identity: male What is your relationship status?: How often do you talk on the phone with friends or family?: decline to answer How often do you get together with friends or relatives?: once per week How often do you attend orthodox or scientologist services?: decline to answer Do you belong to any clubs or organized social groups?: no Panel score (0-1 are the most socially isolated patients): 1 What type of physical activity do you participate in: weight lifting and other Details: Boxing Duration: 15-30 minutes/day Frequency: daily Jade/Jewish: No preference Special jade needs: No Seatbelt use: always Helmet use: Yes Helmet use: always Drive intox or ride w/intox regional dedicated truck driver: No Do you feel safe at home: Yes Do you feel safe in your relationship?: Yes PAWSS Have you Been Recently Intoxicated or Drunk Within the Last 30 days?: No Have you Ever Experienced Previous Episodes of Alcohol Withdrawal?: No Have you ever Experienced Withdrawal Seizures?: No Have you ever Experienced Delirium Tremens(DT)s?: No Have you ever undergone Alcohol Rehabilitation Treatment (i.e, inpt ot outpatient treatment programs)?: No Have you ever Experienced Blackouts?: No Have you ever Combined Alcohol with other Downers within the last 90 days?: No Have you ever Combined Alcohol with any other Substance of Abuse during the last 90 days?: No Positive Blood Alcohol level on Presentation? [PCS.BAL]: No Evidence of Increased Autonomic Activity (i.e. HR>120, tremor, sweating, agitation, nausea)?: No Result: 0
[2024-12-25] MEDS: Albuterol/Ipratropium 3 ML UPD VIAL UPD (09:26)
[2024-12-25] MEDS: Ondansetron 4 MG/2 ML VIAL IVP (09:27)
[2024-12-25] MEDS: LORazepam 20 MG/10 ML VIAL IVP (09:28)
[2024-12-25] MEDS: Normal Saline 1,000 ML 1000 ML IV (09:29)
[2024-12-25 09:47] LABS: ALT 34 U/L (16-63); AST 27 U/L (15-37); Albumin 4.0 g/dL (3.4-5.0); Alkaline Phosphatase 64 U/L (46-116); Anion Gap 15.1 mmol/L (3-11); BUN 11 mg/dL (7-18); Bilirubin, Total 0.6 mg/dL (0.2-1.0); CO2 21.9 mmol/L (21.0-32.0); Calcium 9.8 mg/dL (8.5-10.1); Chloride 100 mmol/L (98-107); Estimated GFR 130.72 (mL/min/1.73m2); Glucose 113 mg/dL (74-106); Lipase 18 U/L (<78); Magnesium 2.0 mg/dL (1.8-2.4); Potassium 3.3 mmol/L (3.5-5.1); Sodium 137 mmol/L (136-145); Total Protein 8.7 g/dL (6.4-8.2)
[2024-12-25 10:22] LABS: Abs Immature Grans 0.02 10^3/uL (0.0-0.06); HCT 38.8 % (40.0-50.0); HGB 13.8 g/dL (13.5-17.5); Immature Grans % 0.2 %; MCH 31.3 pg (27.0-33.0); MCHC 35.6 % (32.0-36.0); MCV 88 fL (80-95); MPV 9.5 fL (8.0-11.0); Platelet Count 264 10^3/uL (130-400); RBC 4.41 10^6/uL (4.36-5.78); RDW 12.4 % (11.8-14.1); RDW-SD 40.3 fL; WBC 11.11 10^3/uL (4.4-10.8)
--- NOTE | 2024-12-25 10:30 | DI.RAD_ITS ---
Exam(s) XR CHEST 2V PA LATERAL EXAM: XR CHEST 2V PA LATERAL CLINICAL HISTORY: cough, wheeze, tachycardia TECHNIQUE: 2D digital imaging was performed of the chest. Two images were obtained. PA and lateral views were obtained. COMPARISON: CR XR CHEST 2V PA LATERAL from 11/18/2018 FINDINGS: MEDIASTINUM: Normal. HEART: Normal. PULMONARY VASCULATURE: Normal. LUNGS: Clear. PLEURAL SPACE: No pleural effusion or pneumothorax. BONE:Within normal limits for the patient's age. There is again seen a sideplate and screws on the left clavicle. OTHER FINDINGS:Normal. IMPRESSION: No acute pulmonary findings. DATA REPOSITORY: RADIATION DOSE DELIVERED:
[2024-12-25] MEDS: hydrOXYzine HCL 25 MG TAB PO (12:16)
[2024-12-25] MEDS: Potassium Bicarbonate/Cit AC 25 MEQ TABLET.EFF PO (12:17)
== END 2024-12-25 12:24 | disposition home or self-care (01) ==
PROVIDERS: Emergency Provider Nurse Practitioner Family; PCP Family Medicine
DX: E87.6 Hypokalemia (principal); R11.2 Nausea with vomiting, unspecified; R00.0 Tachycardia, unspecified; I45.10 Unspecified right bundle-branch block; J45.909 Unspecified asthma, uncomplicated; I10 Essential (primary) hypertension; E78.5 Hyperlipidemia, unspecified; F17.210 Nicotine dependence, cigarettes, uncomplicated
CPT/HCPCS: 80053; 83690; 87426; 93005; 94640; 96374; 96375; 99285; 71046; 83735; 85025; 93010; 99284; J2060; J2405; J7620